=== PATIENT | female | born 2000 | race Two or more races ===

== ENCOUNTER 2022-08-29 20:31 | Emergency (ER) | payer MEDICAID ==
[~2022-08-29] VITALS: Ht 165.1 cm; Wt 61.4 kg
[2022-08-29] MEDS ORDERED: MEDR150V13 IM (20:39)
[2022-08-29] MEDS ORDERED: MethylPREDNISolone SOD SUCC 125 MG/2 ML VIAL IVP ONE (20:45)
[2022-08-29] MEDS ORDERED: DiphenhydrAMINE HCL 50 MG/ML VIAL IVP ONE (20:45)
[2022-08-29] MEDS ORDERED: ALBUTEROL SULFATE 2.5 MG/0.5 ML NEB SOLUTION NEB ONE (20:45)
[2022-08-29] MEDS ORDERED: IPRATROPIUM BROMIDE 0.5 MG/2.5 ML NEB SOLUTION NEB ONE (20:45)
[2022-08-29] MEDS ORDERED: ALBUTEROL SULFATE HFA 90 MCG/PUFF 8 GM INHALER IH ONE (23:00)
[2022-08-29 23:08] LABS: COVID AG,FIA SOURCE NASAL SWAB
[2022-08-29 23:32] LABS: INFLUENZA TYPE A NEGATIVE FOR TYPE A (NEGATIVE); INFLUENZA TYPE B NEGATIVE FOR TYPE B (NEGATIVE)
[2022-08-29 23:42] VITALS: BP 104/65
== END 2022-08-29 23:55 | disposition home or self-care (01) ==
LOC: EMS 20:33
DX: J98.01 Acute bronchospasm (principal); F12.90 Cannabis use, unspecified, uncomplicated; Z91.09 Other allergy status, other than to drugs and biological substances; Z20.822 Contact with and (suspected) exposure to COVID-19
CPT/HCPCS: 99284; 96374; 96375; 87426; 87804; 94640; J1200; J2930; J3535

== ENCOUNTER 2022-12-25 22:22 | Emergency (ER) | payer BC, OTHER ==
[~2022-12-25] VITALS: Ht 162.6 cm; Wt 65.9 kg
[~2022-12-25 22:22] MED LIST: ALBUTEROL SULFATE 2.5 MG/0.5 ML NEB SOLUTION NEB ONE; MEDR150V13 IM
[2022-12-25] MEDS ORDERED: CETI-450 PO (22:32)
[2022-12-25] MEDS ORDERED: ALBUTEROL SULFATE 2.5 MG/0.5 ML NEB SOLUTION NEB ONE (23:37)
[2022-12-26 01:19] VITALS: BP 106/62
== END 2022-12-26 01:26 | disposition home or self-care (01) ==
LOC: EMS 22:22
DX: J45.909 Unspecified asthma, uncomplicated (principal); J18.9 Pneumonia, unspecified organism; F12.90 Cannabis use, unspecified, uncomplicated
CPT/HCPCS: 71045; 94640; 99283; J7613